=== PATIENT | male | born 1965 | race Two or more races ===

== ENCOUNTER 2019-12-23 12:50 | Inpatient (IN) | payer OTHER ==
[~2019-12-23] VITALS: Ht 162.6 cm; Wt 78.0 kg
[2019-12-23 13:33] LABS: BASOPHILS % (AUTO) 0.4 % (0.0-2.0); EOSINOPHILS % (AUTO) 0.6 % (0.0-6.0); HEMATOCRIT 44 % (39-51); HEMOGLOBIN 14.7 g/dL (13.5-17.5); LYMPHOCYTES # (AUTO) 1.4 /CMM (0.8-4.8); LYMPHOCYTES % (AUTO) 21.2 % (20.0-44.0); MEAN CORPUSCULAR HGB CONC 34 g/dl (31.0-36.0); MEAN CORPUSCULAR VOLUME 86 fL (80-96); MONOCYTES # (AUTO) 0.5 /CMM (0.1-1.30); MONOCYTES % (AUTO) 7.2 % (2.0-12.0); NEUTROPHILS # (AUTO) 4.8 /CMM (1.8-8.9); NEUTROPHILS % (AUTO) 70.6 % (43.0-81.0); PLATELET COUNT (AUTO) 332 /CMM (150-450); RED BLOOD CELL COUNT(AUTO) 5.08 MIL/uL (4.5-6.0); WHITE BLOOD COUNT (AUTO) 6.8 K/uL (4.3-11.0)
[2019-12-23 14:21] LABS: POTASSIUM 4.2 mmol/L (3.5-5.1)
[2019-12-23 14:29] LABS: ALBUMIN 3.9 g/dL (3.4-5.0); BILIRUBIN,DIRECT 0.1 mg/dL (0.0-0.2); BILIRUBIN,TOTAL 0.6 mg/dL (0.2-1.0)
[2019-12-23] MEDS ORDERED: CLONIDINE HCL 0.1 MG TABLET PO ONE (15:00)
[2019-12-23] MEDS ORDERED: CLONIDINE HCL 0.1 MG TABLET ONE (15:01)
--- NOTE | 2019-12-23 15:04 | NUR ---
Appears comfortable reclining in [facility]. NAD
--- NOTE | 2019-12-23 16:23 | NUR ---
updated NO acute changes Status quo. Await admission
--- NOTE | 2019-12-23 16:32 | NUR ---
CALLED DR GONZALEZ FOR A DR TO
--- NOTE | 2019-12-23 16:42 | NUR ---
CALLED [facility] TO HAVE IMAGE READ. RADIOLOGIST READING IT NOW.
[2019-12-23] MEDS ORDERED: ONDANSETRON HCL/PF 4 MG/2 ML VIAL IVP PRN (17:30)
[2019-12-23] MEDS ORDERED: MORPHINE SULFATE INJ 2 MG/ML DISP.SYRIN IV PRN (17:30)
[2019-12-23] MEDS ORDERED: NITROGLYCERIN 0.4 MG/TAB BOTTLE SL PRN (17:30)
--- NOTE | 2019-12-23 18:05 | NUR ---
SPOKE TO NATALY FOX [facility] (CALLBACK #) [phone], VERBAL AUTH GIVEN FOR ADMISSION
[2019-12-23] MEDS ORDERED: hydrALAZINE HCL IV 20 MG VIAL ONE ×2 (18:33→20:18)
--- NOTE | 2019-12-23 18:35 | NUR ---
Given Hydralazine 5mg SIVP per Dr Baig. Pt await admission
[2019-12-23] MEDS ORDERED: hydrALAZINE HCL IV 20 MG VIAL IV ONE ×2 (19:00→20:30)
[2019-12-23] MEDS ORDERED: ASPIRIN 81 MG TAB.CHEW PO ONE (19:00)
--- NOTE | 2019-12-23 19:14 | NUR ---
Endorsed to Suzanne ZAVALA for continuity of care
--- NOTE | 2019-12-23 19:54 | NUR ---
CALLED LAB FOR COVID SWAB
--- NOTE | 2019-12-23 20:16 | NUR ---
PT BP REMAINS ON QCT216'S, ER MD MADE AWARE WITH ORDERS RECEIVED. WILL CARRY OUT ORDERS.
--- NOTE | 2019-12-23 20:16 | NUR ---
FOLLOWED UP W/ LAB FOR COVID SWAB
--- NOTE | 2019-12-23 20:25 | NUR ---
PT MEDICATED ORDERED. WILL CONTINUE TO MONITOR PT CLOSELY.
--- NOTE | 2019-12-23 20:31 | NUR ---
COVID SWAB COLLECTED AND SENT TO THE LAB.
--- NOTE | 2019-12-23 21:07 | NUR ---
LAB CALLED REGARDING NEGATIVE COVID RESULT.
--- NOTE | 2019-12-23 21:26 | NUR ---
REPORT GIVEN TO LUCAS PERES
--- NOTE | 2019-12-23 21:40 | NUR ---
Received report from ER nurseSuzanne.
--- NOTE | 2019-12-23 21:43 | NUR ---
PT TRANSFERRED TO ROOM VIA ACLS PROTOCOL
[2019-12-23 21:45] VITALS: BP 189/111
--- NOTE | 2019-12-23 21:45 | NUR ---
FISHING TOOL TECHNICIAN OIL WELLCOURT INTERPRETER NOTE: Patient was transferred to the unit at 2145 via gurney but was able to ambulate to his bed. Patient gate is steady. Patient on room air and breathing well, breathing even and unlabored. No SOB or acute respiratory distress noted. Patient denies pain or discomfort at the moment. Noted IV access on right AC, 18 gauge, dressing intact and dry, patent, no redness or infiltration. Oriented patient to his room. Taught patient how to use the call light and the bed adjustments. Safety precaution is in place, bed is in the lowest level, bed is locked, side rails x2 are up, and call light is within reach. Will continue to monitor.
[2019-12-23] MEDS ORDERED: ASPIRIN 81 MG TAB.CHEW ONE (22:21)
[2019-12-23] MEDS: CARVEDILOL 6.25 MG TABLET PO SCH (22:31)
[2019-12-23 22:45] VITALS: BP 189/111
[2019-12-24] VITALS (7 sets, daily range): BP systolic 140–180; BP diastolic 91–107
--- NOTE | 2019-12-24 07:34 | NUR ---
METAL SPRAYING MACHINE OPERATOR NOTE PATIENT IN BED SLEEPING, RESTING COMFORTABLY. PATIENT IN NO ACUTE DISTRESS. NO SOB NOTED. PATIENT BREATHING IS EVEN AND UNLABORED. PATIENT ON CARDIAC MONITORING READING RHYTHM HR 61. PATIENT BED ALARM IS ON. SAFETY PRECAUTIONS IN PLACE. PATIENT BED IS LOCKED AND IN LOWEST POSITION. CALL LIGHT WITHIN REACH. WILL CONTINUE TO MONITOR. Addendum: 12/24/19 at 0739 by HANG MURCIA RN METAL SPRAYING MACHINE OPERATOR NOTE PATIENT IN BED SLEEPING, RESTING COMFORTABLY. PATIENT IN NO ACUTE DISTRESS. NO SOB NOTED. PATIENT BREATHING IS EVEN AND UNLABORED. PATIENT ON CARDIAC MONITORING READING SINUS RHYTHM HR 61. PATIENT BED ALARM IS ON. SAFETY PRECAUTIONS IN PLACE. PATIENT BED IS LOCKED AND IN LOWEST POSITION. CALL LIGHT WITHIN REACH. WILL CONTINUE TO MONITOR.
--- NOTE | 2019-12-24 08:15 | NUR ---
STEEL LOADER NOTE PATIENT TEMPERATURE 99.3F. IMPLEMENTED COOLING MEASURES.
[2019-12-24] MEDS: ASPIRIN 81 MG TAB.CHEW PO SCH (08:32)
[2019-12-24] MEDS: VALSARTAN 80 MG TABLET PO SCH (08:32)
[2019-12-24] MEDS: CARVEDILOL 6.25 MG TABLET PO SCH ×2 (08:33→21:19)
[2019-12-24] MEDS ORDERED: hydrALAZINE HCL 10 MG TABLET PO ONE (09:00)
[2019-12-24] MEDS: ATORVASTATIN 10 MG TABLET PO SCH (09:39)
[2019-12-24 10:00] LABS: THYROID STIMULATING HORMONE 2.949 uIU/mL (0.358-3.74)
--- NOTE | 2019-12-24 16:13 | NUR ---
SCIENTIFIC LABORATORY SUPERVISOR NOTE PATIENT STATED EAR PAIN 06/[address] POE OF EAR PAIN. PER MD ORDER FOR MOTRIN 600 MG Q8H PRN.
--- NOTE | 2019-12-24 16:18 | NUR ---
CONSTRUCTION PROJECT MGR NOTE PATIENT STATED EAR PAIN 4/10, MOTRIN PRN GIVEN ORDERED.
[2019-12-24] MEDS: IBUPROFEN 600 MG TABLET PO PRN (16:20)
--- NOTE | 2019-12-24 17:21 | NUR ---
REGIONAL CLINICAL DIRECTOR NOTE PATIENT AUTOMATIC BP TAKEN AND IS 187/109 AND HR 70. PATIENT MANUAL BP TAKEN AND IS 180/100, HR 74. INFORMED DR. POE THAT RECENT TREND OF BP STILL ELEVATED. PER DR. POE ORDER FOR CLONIDINE 0.2 MG PO Q8H.
[2019-12-24 17:29] LABS: BASOPHILS % (AUTO) 0.4 % (0.0-2.0); EOSINOPHILS % (AUTO) 0.8 % (0.0-6.0); HEMATOCRIT 45 % (39-51); HEMOGLOBIN 15.1 g/dL (13.5-17.5); LYMPHOCYTES # (AUTO) 1.9 /CMM (0.8-4.8); LYMPHOCYTES % (AUTO) 21.2 % (20.0-44.0); MEAN CORPUSCULAR HGB CONC 34 g/dl (31.0-36.0); MEAN CORPUSCULAR VOLUME 86 fL (80-96); MONOCYTES # (AUTO) 0.7 /CMM (0.1-1.30); NEUTROPHILS # (AUTO) 6.3 /CMM (1.8-8.9); NEUTROPHILS % (AUTO) 69.6 % (43.0-81.0); PLATELET COUNT (AUTO) 344 /CMM (150-450); RED BLOOD CELL COUNT(AUTO) 5.16 MIL/uL (4.5-6.0); WHITE BLOOD COUNT (AUTO) 9.1 K/uL (4.3-11.0)
--- NOTE | 2019-12-24 17:31 | NUR ---
HEAD SWAMPER NOTE SPOKE TO TIMMY FROM RADIOLOGY TO FOLLOW UP WITH PATIENT CTA HEART SCAN. PER TIMMY PATIENT TO HAVE SCAN SO [facility] HOME PROVIDERABDULAZIZ CANO COMES AND ICU NURSE IS READY. PER TIMMY CANO IS AWARE AND SHE WILL LET ME KNOW WHEN CTA WILL BE PERFORMED.
[2019-12-24] MEDS: CLONIDINE HCL 0.1 MG TABLET PO SCH ×2 (17:38→21:19)
--- NOTE | 2019-12-24 17:43 | NUR ---
GUN PERFORATOR LOADER NOTE SPOKE WITH TIMMY FROM RADIOLOGY AND PER TIMMY SHE STATED CTA HEART SCAN WILL BE DONE AT 1930 BY HER AND THE ICU NURSE THAT IS AVAILABLE.
[2019-12-24 17:45] LABS: CALCIUM, SERUM 9.4 mg/dL (8.5-10.1); MAGNESIUM 2.3 mg/dL (1.8-2.4); PHOSPHORUS 4.3 mg/dL (2.5-4.9); POTASSIUM 4.7 mmol/L (3.5-5.1)
--- NOTE | 2019-12-24 18:05 | NUR ---
BOX BLANK MACHINE FEEDER NOTE RECHECKED PATIENT BP MANUALLY AND BP IS NOW 160/91. PATIENT STATES NO PAIN AT THIS TIME.
--- NOTE | 2019-12-24 18:36 | NUR ---
LAMP REPLACER CLOSING NOTE PATIENT IN BED RESTING COMFORTABLY. PATIENT IN NO ACUTE DISTRESS. NO SOB NOTED. PATIENT BREATHING IS EVEN AND UNLABORED. PATIENT ON CARDIAC MONITORING READING SINUS RHYTHM HR 82. PATIENT STATES NO PAIN AT THIS TIME. WILL ENDORSE TO SALES REPRESENTATIVE TRAINEE TO FOLLOW UP WITH CTA HEART SCAN. PATIENT BED ALARM IS ON. SAFETY PRECAUTIONS IN PLACE. PATIENT BED IS LOCKED AND IN LOWEST POSITION. CALL LIGHT WITHIN REACH. WILL ENDORSE CARE TO PM SHIFT FOR DELIA.
--- NOTE | 2019-12-24 19:30 | NUR ---
TELE/RN OPENING NOTES: RECEIVED PATIENT IN BED RESTING. PATIENT IN NO ACUTE DISTRESS. NO SOB NOTED. PATIENT BREATHING IS EVEN AND UNLABORED. PATIENT ON TELE MONITORING READING SR. NO C/O PAIN AT THIS TIME. HAS A SCHEDULED CTA HEART SCAN TONIGHT. PATIENT BED ALARM IS ON. SAFETY PRECAUTIONS IN PLACE. PATIENT BED IS LOCKED AND IN LOWEST POSITION. CALL LIGHT WITHIN REACH. WILL CONTINUE TO MONITOR ACCORDINGLY.
[2019-12-24] MEDS ORDERED: IV NS 0.9% 250 ML IV ONE (19:38)
[2019-12-24] MEDS ORDERED: IOHEXOL-350 100 ML VIAL IV ONE (19:38)
--- NOTE | 2019-12-24 19:38 | NUR ---
TELE/RN NOTES: PT. LEFT THE UNIT VIA WHEELCHAIR WITH RADIOLOGY STAFF FOR SCHEDULED CTA HEART AT 1938. IN STABLE CONDITION.
[2019-12-24] MEDS ORDERED: NITROGLYCERIN 0.4 MG/TAB BOTTLE SL PRN (20:00)
[2019-12-24] MEDS: METOPROLOL TARTRATE INJ 5 MG/5 ML AMPUL IVP PRN ×4 (20:00→20:15)
[2019-12-24] MEDS ORDERED: METOPROLOL TARTRATE INJ 5 MG/5 ML AMPUL ONE (20:16)
--- NOTE | 2019-12-24 20:31 | NUR ---
TELE/RN NOTES: PT. CAME BACK FROM CTA HEART. TRANSFERRED BY COMPO CONVEYOR OPERATOR AND RADIOLOGY STAFF VIA WHEELCHAIR. IN STABLE CONDITION. NO C/O PAIN AT THIS TIME. WILL CONTINUE TO MONITOR ACCORDINGLY.
[2019-12-25] VITALS: BP 130/76
[2019-12-25 00:10] VITALS: BP 130/76
[2019-12-25] MEDS: IBUPROFEN 600 MG TABLET PO PRN (00:18)
[2019-12-25 03:59] VITALS: BP 115/68
[2019-12-25 04:00] VITALS: BP 115/68
[2019-12-25] MEDS: CLONIDINE HCL 0.1 MG TABLET PO SCH ×2 (04:52→12:52)
[2019-12-25 07:02] LABS: BASOPHILS % (AUTO) 0.2 % (0.0-2.0); EOSINOPHILS % (AUTO) 1.6 % (0.0-6.0); HEMATOCRIT 42 % (39-51); HEMOGLOBIN 13.9 g/dL (13.5-17.5); LYMPHOCYTES # (AUTO) 2.1 /CMM (0.8-4.8); LYMPHOCYTES % (AUTO) 27.9 % (20.0-44.0); MEAN CORPUSCULAR HGB CONC 33 g/dl (31.0-36.0); MEAN CORPUSCULAR VOLUME 87 fL (80-96); MONOCYTES # (AUTO) 0.8 /CMM (0.1-1.30); MONOCYTES % (AUTO) 10.2 % (2.0-12.0); NEUTROPHILS # (AUTO) 4.5 /CMM (1.8-8.9); NEUTROPHILS % (AUTO) 60.1 % (43.0-81.0); PLATELET COUNT (AUTO) 303 /CMM (150-450); RED BLOOD CELL COUNT(AUTO) 4.84 MIL/uL (4.5-6.0); WHITE BLOOD COUNT (AUTO) 7.5 K/uL (4.3-11.0)
--- NOTE | 2019-12-25 07:15 | NUR ---
TELE/RN CLOSING NOTES: PATIENT REMAINS IN BED RESTING. A/OX4. IN NO ACUTE DISTRESS. NO SOB NOTED. PATIENT BREATHING IS EVEN AND UNLABORED. PATIENT ON TELE MONITORING READING SR. NO C/O PAIN AT THIS TIME. PATIENT BED ALARM IS ON.BP WNL AND IMPROVING. SAFETY PRECAUTIONS IN PLACE. PATIENT BED IS LOCKED AND IN LOWEST POSITION. CALL LIGHT WITHIN REACH. ENDORSED TO DAY SHIFT FOR DELIA.
--- NOTE | 2019-12-25 07:16 | NUR ---
SLABBER NOTE PATIENT IN BED SLEEPING, RESTING COMFORTABLY. PATIENT IN NO ACUTE DISTRESS. NO SOB NOTED. PATIENT BREATHING IS EVEN AND UNLABORED. PATIENT ON CARDIAC MONITORING READING SINUS RHYTHM HR 69. PATIENT BED ALARM IS ON. SAFETY PRECAUTIONS IN PLACE. PATIENT BED IS LOCKED AND IN LOWEST POSITION. CALL LIGHT WITHIN REACH. WILL CONTINUE TO MONITOR.
[2019-12-25 07:34] LABS: ALBUMIN 3.4 g/dL (3.4-5.0); CALCIUM, SERUM 8.7 mg/dL (8.5-10.1); CREATININE 1.1 mg/dL (0.6-1.3); MAGNESIUM 2.4 mg/dL (1.8-2.4); PHOSPHORUS 4.3 mg/dL (2.5-4.9); TOTAL PROTEIN, SERUM 7.3 g/dL (6.4-8.2)
[2019-12-25 08:00] VITALS: BP 111/70
[2019-12-25] MEDS: ATORVASTATIN 10 MG TABLET PO SCH (08:12)
[2019-12-25] MEDS: CARVEDILOL 6.25 MG TABLET PO SCH (08:16)
[2019-12-25] MEDS: VALSARTAN 80 MG TABLET PO SCH (08:16)
[2019-12-25] MEDS: ASPIRIN 81 MG TAB.CHEW PO SCH (08:17)
[2019-12-25 12:52] VITALS: BP 129/71
--- NOTE | 2019-12-25 15:06 | NUR ---
ROUSTABOUT NOTE PATIENT MEDICALLY CLEARED FOR DISCHARGED. PATIENT IN NO ACUTE DISTRESS. NO SOB NOTED. PATIENT BREATHING IS EVEN AND UNLABORED. DC INSTRUCTIONS PROVIDED. PATIENT VERBALIZED UNDERSTANDING. GIVEN PATIENT PRESCRIPTION. PATIENT HAS BELONGINGS AND MONEY FROM [facility] AND SIGNED BELONGINGS LIST AND WITNESSED BY ME AND ANTHONY TERRY. PATIENT ID BAND REMOVED. PATIENT IV REMOVED. PATIENT REFUSED SKIN ASSESSMENT. EDUCATED RISKS VS BENEFITS. PATIENT CONTINUED TO REFUSE. PATIENT KEPT CLEAN, DRY, AND COMFORTABLE THROUGHOUT SHIFT. NEEDS AND CONCERNS ADDRESSED. PATIENT STATES NO PAIN. PATIENT AMBULATORY WITH STEADY GAIT GOING BACK HOME WITH BROTHER.
== END 2019-12-25 14:35 | disposition home or self-care (01) | DRG 199 ==
LOC: ER 12:52 → TELE 21:37
PROVIDERS: ADMIT Internal Medicine; ATTEND Internal Medicine
DX: I16.0 Hypertensive urgency (principal); I21.4 Non-ST elevation (NSTEMI) myocardial infarction; Z91.14 Patient's other noncompliance with medication regimen; Z86.73 Personal history of transient ischemic attack (TIA), and cerebral infarction without residual deficits; I10 Essential (primary) hypertension
CPT/HCPCS: 36415; 70450-TC; 71045-TC; 75574; 80048-TC; 80053-TC; 80061-TC; 80076-TC; 83735-TC; 84100-TC; 84439-TC; 84443-TC; 84484-TC; 85025-TC; 87081-TC; 93307-TC; C9803-CS; G0378; J0360; J3490; J7050; Q9967